=== PATIENT | female | born 1970 | race Caucasian/White ===

== ENCOUNTER 2020-02-17 10:08 | Emergency (ER) | payer OTHER ==
[~2020-02-17] VITALS: Ht 157.5 cm; Wt 75.3 kg
[2020-02-17] MEDS ORDERED: FORTAMET500 MG (10:39)
[2020-02-17] MEDS ORDERED: ZETIA10 MG (10:39)
[2020-02-17] MEDS ORDERED: SIMVASTATIN5 MG (10:39)
== END 2020-02-17 16:33 | disposition home or self-care (01) ==
LOC: ER 10:08
DX: N85.8 Other specified noninflammatory disorders of uterus (principal); N93.8 Other specified abnormal uterine and vaginal bleeding; N39.0 Urinary tract infection, site not specified